=== PATIENT | female | born 1965 | race Caucasian/White ===

== ENCOUNTER 2017-05-11 07:44 | Day surgery (SDC) | payer BC ==
[2017-03-16 16:13] VITALS: BMI 26.7
[~2017-05-11 07:44] MED LIST: LACTATED RINGERS 1,000 ML IV SCH
[2017-05-11 08:18] VITALS: RESP 16; TEMP 98.1
[2017-05-11] MEDS ORDERED: PROPOFOL 10 MG/ML 20 ML VIAL IV ONE (08:54)
--- NOTE | 2017-05-11 09:12 | P.PCN ---
Date of Procedure: 05/11/17 Procedure(s) Performed: BRIEF HISTORY: Patient is a 51-year-old pleasant white female, scheduled for an elective colonoscopy as a part of screening for colorectal neoplasia. PROCEDURE PERFORMED: Colonoscopy. PREOPERATIVE DIAGNOSIS: Screening for colon cancer. IV sedation per Anesthesia. PROCEDURE: After informed consent was obtained, the patient, was brought into the endoscopy unit. IV sedation was administered by Anesthesia under continuous monitoring. Digital rectal examination was normal. Initially the Olympus CF- 160 flexible video colonoscope was then inserted in the rectum, gradually advanced into the cecum without any difficulty. Careful examination was performed as the scope was gradually being withdrawn. Ileocecal valve and the appendiceal orifice were visualized and appeared normal. Prep was excellent. Mucosa of the cecum, ascending colon, transverse colon, descending colon, sigmoid colon, and rectum appeared normal. Retroflexion was performed in the rectum and no lesions were seen. The patient tolerated the procedure well. IMPRESSION: Normal-appearing colon from rectum to cecum with no evidence of colorectal neoplasia. RECOMMENDATIONS: Findings of this examination were discussed with the patient S as well as her family. She was advised to have a repeat screening colonoscopy in 10 years
[2017-05-11 09:30] VITALS: BP 147/90; PULSE 66
== END 2017-05-11 09:50 | disposition home or self-care (01) ==
LOC: ORWHC2ENDO 07:44
PROVIDERS: ATTEND Internal Medicine Gastroenterology
DX: Z12.11 Encounter for screening for malignant neoplasm of colon (principal); K21.9 Gastro-esophageal reflux disease without esophagitis; F17.200 Nicotine dependence, unspecified, uncomplicated; Z79.899 Other long term (current) drug therapy
CPT/HCPCS: G0121; J2704

== ENCOUNTER → 2020-02-27 | Outpatient (CLI) | payer BC | END | disposition home or self-care (01) | LOC: LABWHC1 11:48 | PROVIDERS: ATTEND Otolaryngology | DX: J30.89 Other allergic rhinitis (principal) | CPT/HCPCS: 36415 ==

== ENCOUNTER 2020-06-30 10:10 | Day surgery (SDC) | payer BC ==
[2020-06-29 10:41] VITALS: BMI 30.1
[2020-06-30] MEDS ORDERED: LACTATED RINGERS 1,000 ML IV ONE ×2 (10:29)
[2020-06-30 10:38] VITALS: RESP 16; TEMP 97.8
[2020-06-30] MEDS ORDERED: LIDOCAINE 1% INJ 10MG/ML (20 ML MDV) ONE (11:01)
[2020-06-30] MEDS ORDERED: PROPOFOL 10 MG/ML 20 ML VIAL IV ONE (11:01)
--- NOTE | 2020-06-30 11:19 | P.PCN ---
Date of Procedure: 06/30/20 Procedure(s) Performed: BRIEF HISTORY: Patient is a 54.-year-old, pleasant, female scheduled for an upper endoscopy as a part of evaluation of long-standing history of GERD. He is on Prilosec 20 mg daily and doing well. He has been having abdominal. PROCEDURE PERFORMED: Esophagogastroduodenoscopy with biopsy. PREOPERATIVE DIAGNOSIS: Long-standing history of GERD. IV sedation per anesthesia. PROCEDURE: After informed consent was obtained, the patient was brought into the endoscopy unit. IV sedation was administered by Anesthesia under continuous monitoring. Initially the Olympus GIF-140 video endoscope was inserted into the mouth. Esophagus intubated without any difficulty. It was gradually advanced into the stomach and duodenum and carefully examined. The bulb and the second part of the duodenum appeared normal. The scope at this time was withdrawn to the stomach, adequately insufflated with air, and upon careful examination, mucosa of the antrum had mild gastritis and biopsies were done and Jenifer., body, cardia and the fundus appeared normal. The scope was then withdrawn into the esophagus. The GE junction was located at 39 cm from the incisors. The esophagus appeared normal. There were no erosions or ulcerations seen and biopsies were done from the distal esophagus and the patient tolerated the procedure well. IMPRESSION: 1. Mild antral gastritis. 2. No evidence of esophagitis or Rodriguez's esophagus. RECOMMENDATIONS: The findings of this examination were discussed with the patient as well as her family. She was advised to continue with Prilosec 20 mg daily and follow antireflux measures.
[2020-06-30 11:46] VITALS: BP 118/76; PULSE 69
== END 2020-06-30 12:06 | disposition home or self-care (01) ==
LOC: ORWHC2ENDO 10:10
PROVIDERS: ATTEND Internal Medicine Gastroenterology
DX: K21.00 Gastro-esophageal reflux disease with esophagitis, without bleeding (principal); K29.50 Unspecified chronic gastritis without bleeding; I10 Essential (primary) hypertension; E78.5 Hyperlipidemia, unspecified; F17.210 Nicotine dependence, cigarettes, uncomplicated; Z79.899 Other long term (current) drug therapy; Z87.19 Personal history of other diseases of the digestive system; Z98.890 Other specified postprocedural states
CPT/HCPCS: 88305; 43239; J2001; J2704